=== PATIENT | male | born 1985 | race Caucasian/White ===

== ENCOUNTER → 2020-05-23 | Outpatient (CLI) | payer OTHER ==
[~2020-05-23] MED LIST: PRIL20CA9 PO
== END ==
LOC: M LABSMTC 13:05
PROVIDERS: ATTEND Family Medicine
DX: Z20.828 Contact with and (suspected) exposure to other viral communicable diseases (principal)

== ENCOUNTER 2022-08-03 03:28 | Emergency (ER) | payer OTHER ==
[~2022-08-03] VITALS: Ht 193 cm; Wt 110.5 kg
[2022-08-03] MEDS ORDERED: DIPH-435 PO ×2 (03:34→05:26)
[2022-08-03] MEDS ORDERED: FAMOTIDINE 20MG/2ML VIAL IVP ONE (03:50)
[2022-08-03] MEDS ORDERED: diphenhydrAMINE 50MG/ML VIAL IV ONE (03:50)
[2022-08-03] MEDS ORDERED: methylPREDNISolone 125MG 2ML VIAL IV ONE (03:50)
[2022-08-03] MEDS: IPRATROPIUM 0.5MG/ALBUTEROL 2.5MG INH SOL UD 3ML (DUONEB) NEB SCH ×2 (04:09→04:10)
[2022-08-03] MEDS ORDERED: NS 1,000 ML IV ONE (04:20)
[2022-08-03 04:50] VITALS: BP 128/76
[2022-08-03] MEDS ORDERED: PRED20TA PO (05:26)
[2022-08-03] MEDS ORDERED: EPIP0.3I2 IM (05:26)
[2022-08-03] MEDS ORDERED: PEPC1TAB5 PO (05:26)
== END 2022-08-03 05:30 | disposition home or self-care (01) ==
LOC: M ED 03:28
DX: T78.2XXA Anaphylactic shock, unspecified, initial encounter (principal); F17.200 Nicotine dependence, unspecified, uncomplicated
CPT/HCPCS: 87486; 87581; 87633; 87798; 93041; 94640; 94760; 96374; 96375; 99284; J1200; J2930; S0028

== ENCOUNTER → 2024-03-24 | Outpatient (CLI) | payer OTHER ==
[~2024-03-24] MED LIST changes: +DIPH-435 PO; +EPIP0.3I2 IM; +PEPC1TAB5 PO; +PRED20TA PO
[2024-03-24 20:11] LABS: ALBUMIN 4.2 G/DL (3.2-5.2); ALKALINE PHOSPHATASE 84 U/L (46-116); ALT/SGPT 29 U/L (7.0-40); AST/SGOT 23 U/L (<34); BILIRUBIN,TOTAL 0.4 MG/DL (0.3-1.2); BLOOD UREA NITROGEN 16 MG/DL (9-23); CALCIUM LEVEL 9.7 MG/DL (8.5-10.1); CARBON DIOXIDE LEVEL 31 MMOL/L (20-31); CHLORIDE LEVEL 106 MMOL/L (98-107); CHOLESTEROL LEVEL 157 MG/DL (<200); CHOLESTEROL RISK RATIO 2.85 (<5); CREATININE FOR GFR 1.12 MG/DL (0.70-1.30); GLOMERULAR FILTRATION RATE > 60.0 (>60); GLUCOSE, FASTING 80 MG/DL (60-100); SODIUM LEVEL 141 MMOL/L (136-145); TOTAL PROTEIN 7.5 G/DL (5.7-8.2); TRIGLYCERIDES LEVEL 115 MG/DL (<150)
== END ==
LOC: M WUC 15:27
PROVIDERS: ATTEND Internal Medicine
DX: E78.1 Pure hyperglyceridemia (principal)

== ENCOUNTER → 2025-05-29 | Outpatient (CLI) | payer OTHER | LOC: M PLAIMG 07:01 | PROVIDERS: ATTEND Nurse Practitioner | DX: M51.26 Other intervertebral disc displacement, lumbar region (principal); M54.50 Low back pain, unspecified ==